=== PATIENT | male | born 1960 | race Caucasian/White ===

== ENCOUNTER 2018-08-27 07:13 | Inpatient (IN) ==
[2018-08-27] MEDS ORDERED: ZOFRAN IV ONE (07:27)
[2018-08-27] MEDS ORDERED: M.V.I.-12 10 ML, FOLIC ACID 1 MG, MAGNESIUM SULFATE 1 GM, THIAMINE 100 MG in NS 1,000 ML IV ONE (07:27)
[2018-08-27] MEDS ORDERED: TORADOL IV ONE (07:27)
[2018-08-27] MEDS ORDERED: DILAUDID IV ONE (07:27)
[2018-08-27] MEDS ORDERED: POTASSIUM CHLORIDE 20 MEQ/SWI 20 MEQ/100 ML IVPB IV ONE (07:28)
[2018-08-27 08:05] LABS: INR 0.88; PROTIME 12.7 Seconds (11.0-16.0); PTT 25.2 Seconds (22.3-41.8)
--- NOTE | 2018-08-27 08:18 | Diag Imaging Result Doc PS360 ---
EXAM: XRAY PELVIS W/HIP 2-3VW LT 08/27/2018 HISTORY: fall, injury TECHNIQUE: Two views COMMENT: There is an intertrochanteric fracture of the left femur. There is a healing fracture of the proximal right femur with intramedullary rosalind and hip nail. There is generalized osteopenia. IMPRESSION: Left intertrochanteric fracture. Electronically signed by Cj Kuo 08/27/2018 8:16 AM
[2018-08-27] MEDS ORDERED: ATIVAN IV ONE ×2 (08:20→08:53)
[2018-08-27] MEDS ORDERED: MAGNESIUM SULFATE 2 GM/S.W.I. 2 GM/50 ML IVPB IV ONE (08:21)
--- NOTE | 2018-08-27 08:26 | PROVIDER DOCUMENTATION ---
HPI-Musculoskeletal Pain/Inj - GENERAL Chief Complaint: Fall Stated Complaint: fall/hip pain Time Seen by Provider: 08/27/18 07:20 Source: patient, EMS - HX OF PRESENT ILLNESS-MUSKULOSKELTAL Nature of Presenting Problem: Patient had just been discharged this morning from the ER for a chest pain work- up, and while walking home, tripped and fell off a curb onto his left hip. Patient has had a recent right hip fracture ORIF, and states he knows his hip is broken. Patient denies being an alcohol or going through withdrawals, and states "I only drink 2-3 beers a day." Last meal 2200 last night, last alcohol intake about the same time. Denies any other injuries or Loc/neck pain. Quality of Pain: reports: sharp, stabbing Severity in ED: severe Onset/Duration: just prior to arrival Timing: still present Modifying Factors: improves with: immobilization. 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) Locality of Occurance: Other (street) Similar Symptoms Previously?: Yes (with right hip) Recently seen or treated by another doctor?: Yes (this ER for chest pain) - FALL INJURY Location of Pain/Injury: reports: lower extremity (left hip) Pain Radiation: reports: no radiation Reason for Fall: reports: lost balance Symptoms prior to fall:: reports: chest pain (last night, resolved around 0200) Loss of Consciousness: no loss of consciousness Injury Associated Symptoms: reports: snap/crack/pop sensation, unable to bear weight, trouble walking - HIP/PELVIS PAIN/INJURY Hip Pain Location: reports: hip (L) Pain Radiation: reports: no radiation Context / Method of Injury: reports: fall Associated Symptoms: denies: loss of bladder control, loss of bowel control, lower back pain, muscle spasms, numbness in legs/feet, sensory/motor loss, tingling in legs/feet, weakness in legs/feet Review of Systems - Adult - REVIEW OF SYSTEMS - ADULT Constitutional: reports: see HPI, chills. denies: fever, fatique, night sweats , weight gain, weight loss Eyes: reports: no symptoms reported Ears, Nose, Mouth & Throat: reports: no symptoms reported Cardiovascular: reports: see HPI, chest pain (last night, sharp, constant, lasted a few minutes) Respiratory: reports: chronic cough. denies: cough, dyspnea on exertion, excessive sputum production, hemoptysis, pleurisy, shortness of breath, wheezing Gastrointestinal: reports: no symptoms reported Genitourinary: reports: no symptoms reported Musculoskeletal: reports: no symptoms reported Integumentary: reports: no symptoms reported Neurological: reports: no symptoms reported Psychiatric: reports: no symptoms reported Endocrine: reports: no symptoms reported Hematologic/Lymphatic: reports: no symptoms reported Allergic/Immunologic: reports: no symptoms reported All Other Systems: Reviewed and Negative Past History - Adult - PAST MEDICAL HISTORY-ADULT Review of Records: reports: Old Records Reviewed, Nursing Assessment Review, Medications Reviewed, Social history reviewed & non-contributory. Major Childhood Illnesses: reports: denies history Cardiovascular: reports: HTN Respiratory: reports: denies history Gastrointestinal: reports: pancreatitis Obstetrical/Gynecological: reports: denies history Genitourinary: reports: denies history Musculoskeletal: reports: denies history Neurological: reports: denies history Endocrine/Immune: reports: denies history Other Conditions: reports: denies history - PRIOR SURGERIES/PROCEDURES Surgical/Procedure History: reports: orthopedic (extremity), joint replacement - IMMUNIZATION STATUS Childhood Immunizations: See Nurse Assessment Flu Vaccine: See Nurse Assessment - FAMILY HISTORY Family History: reviewed, not pertinent Physical Exam-Injury Related - Physical Exam-Injury Related Initial Vital Signs Reviewed: Yes (Tacycardic, hypertensive, o/w normal) General Appearance: alert, no apparent distress, thin, anxious, other (tremulous ) Eyes: PERRL/EOMI, pink conjunctivae Head, Ears, Nose, Mouth & Throat: normocephalic/atraumatic, moist mucous membranes, normal ENT inspection, pharynx normal, dental decay Neck: non-tender, full range of motion, supple, normal inspection. negative: pain with axial compression Respiratory: chest non-tender, no pleuratic chest pain, no respiratory distress , no accessory muscle use, rhonchi, wheezing. 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, no motor/sensory deficits, abnormal cerebellar tests (unsteady gate), abnormal gait, other (tremulous) Psych/Mental Status: normal thought content, normal thought process, oriented x 3, anxious, disheveled - Gl[place]ow Coma Score Best Eye Response ([place]): (4) open spontaneously Best Verbal Response ([place]): (5) oriented Best Motor Response ([place]): (6) obeys commands [place] Total: 15 Progress - PLAN OF CARE/RESULTS Progress/Plan/Lab Results: Vital Signs - 8 hr 08/27/18 07:42 Temperature 97.3 F L Pulse Rate 98 H Respiratory Rate 20 Blood Pressure 166/120 O2 Sat by Pulse Oximetry 95 Laboratory Results - last 24 hr 08/27/18 08/27/18 08/27/18 07:35 07:35 07:35 PT 12.7 INR 0.88 PTT (Actin FS) 25.2 Magnesium 1.4 L Troponin T Plasma/Serum Ethyl Alc 08/27/18 07:35 PT INR PTT (Actin FS) Magnesium Troponin T < 0.010 Plasma/Serum Ethyl Alc Orders Category Date Time Status Saline Loc NOW Care 08/27/18 07:26 Active NPO Diet 08/27/18 07:[address] HEAD/C-SPINE W/O CONTRAST [CT] Stat Exams 08/27/18 08:22 Ordered XRAY PELVIS W/HIP 2-3VW LT [RAD] Stat Exams 08/27/18 07:27 Completed ALCOHOL BLOOD Stat Lab 08/27/18 07:35 Completed BLOOD CULTURE [BLDCUL] Stat Lab 08/27/18 08:20 Ordered LACTATE, PLASMA [CHEM] Stat Lab 08/27/18 08:20 Uncollected MAGNESIUM [CHEM] Stat Lab 08/27/18 07:35 Completed PROTIME WITH INR [COAG] Stat Lab 08/27/18 07:35 Completed PTT [COAG] Stat Lab 08/27/18 07:35 Completed TROPONIN T Stat Lab 08/27/18 07:35 Completed URINALYSIS W/POSS RFLX CULT [URINALYSIS] Stat Lab 08/27/18 07:27 Uncollected URINE DRUG SCREEN Stat Lab 08/27/18 07:27 Uncollected Hydromorphone [Dilaudid] Med 08/27/18 07:27 Discontinued 1 mg IV NOW ONE Ketorolac [Toradol] Med 08/27/18 07:27 Discontinued 30 mg IV NOW ONE Lorazepam [Ativan] Med 08/27/18 08:20 Discontinued 1 mg IV NOW ONE Magnesium Sulfate 2 gm/S.w.i. [Magnesium Sulfate 2 gm/S Med 08/27/18 08:21 Active .w.i] 2 gm in 50 ml IV NOW Mvi [M.v.i.-12] 10 ml Med 08/27/18 07:27 Discontinued Folic Acid 1 mg Magnesium Sulfate 1 gm Thiamine 100 mg 0.9% Sodium Chloride Inj [Ns] 1,000 ml IV NOW Ondansetron [Zofran] Med 08/27/18 07:27 Discontinued 4 mg IV NOW ONE Potassium Chloride 20 Meq/Swi Med 08/27/18 07:28 Active 20 meq in 100 ml IV ONCE EKG [EKG] Stat Ther 08/27/18 07:26 Ordered Last night chart reviewed, labs essentially normal except mild anemia and hypokalemia. - REASSESSMENT Reassessment #1 Time Reassessed: 08:52 Status: improving (after meds given) - CONSULTS/PCP/HOSPITALIST Notification #1 *Consult/PCP/Hospitalist*: jordan paged at 0817 Time Discussed: 08:44 Reason/Comments: Keep NPO, he will likely do ORIF this afternoon #2 Consult: MARY Maxwell Time Discussed: 08:31 Reason/Comments: admit to Day Consult Disposition: Will see in ED Departure - Departure Date of Disposition Decision: 08/27/18 Time of Disposition Decision: 08:31 DIAGNOSIS: Hypomagnesemia syndrome, Hypokalemia due to inadequate potassium intake, Hypertensive urgency, malignant Closed intertrochanteric fracture of left hip Qualifiers: Encounter type: initial encounter Fracture alignment: displaced Qualified Code( s): S72.142A - Displaced intertrochanteric fracture of left femur, initial encounter for closed fracture Fall (on)(from) sidewalk curb, initial encounter Qualifiers: Encounter type: initial encounter Qualified Code(s): W10.1XXA - Fall (on)(from ) sidewalk curb, initial encounter Alcohol withdrawal Qualifiers: Complication of substance-induced condition: uncomplicated Qualified Code(s): F10.230 - Alcohol dependence with withdrawal, uncomplicated Disposition: ADMITTED INPATIENT 09 Certified Medical Emergency: Emergent Condition: Stable - Critical Care Note This patient required my direct & personal management of CC.: Yes Total Time (mins): 40 Critical Care Statement: This patient required my direct personal management to treat or rule out processes, the absence of which, could potentiallly result in sudden, clinically significant life or limb threatening deterioration. Attestation - Physician/ MARCELL Attestation Patient care was provided by Advanced Practice Provider:: No The physician spent face to face time with patient:: Yes Advanced Practice Provider documentation review:: Supervising physician onsite and consulted in the evaluation and care of this patient. The physician did have a face to face encounter with the patient.
[2018-08-27] MEDS ORDERED: DUONEB (A & A) INH ONE (08:30)
[2018-08-27 08:43] LABS: URINE SOURCE CLEAN CATCH
[2018-08-27] MEDS ORDERED: BENTYL PO PRN (08:45)
[2018-08-27 08:47] LABS: BILIRUBIN URINE NEGATIVE (NEGATIVE); BLOOD URINE NEGATIVE (NEGATIVE); COLOR STRAW; GLUCOSE URINE NEGATIVE (NEGATIVE); KETONE URINE NEGATIVE (NEGATIVE); LEUKOCYTES URINE NEGATIVE (NEGATIVE); NITRITE URINE NEGATIVE (NEGATIVE); PROTEIN URINE NEGATIVE (NEGATIVE); TURBIDITY URINE CLEAR (CLEAR); UROBILINOGEN URINE NORMAL (NORMAL)
[2018-08-27 08:48] LABS: UR EPITHELIAL CELLS <10 /HPF (<10); URINE BACTERIA NEGATIVE /HPF; URINE RBC <10 /HPF (<10); URINE WBC <10 /HPF (<10)
[2018-08-27] MEDS ORDERED: CATAPRES-TTS-2 TD ONE (08:53)
[2018-08-27] MEDS ORDERED: LABETALOL IV ONE (08:54)
[2018-08-27] MEDS ORDERED: TYLENOL PO PRN (09:00)
[2018-08-27] MEDS ORDERED: ZOFRAN IV PRN (09:00)
[2018-08-27 09:01] LABS: UR AMPHETAMINES MT NONE DETECTED (NONE DETECT); UR BARBITUATES MT NONE DETECTED (NONE DETECT); UR BENZODIAZ MT PRESUMPTIVE POS (NONE DETECT); UR CANNABIS MEDTOX NONE DETECTED (NONE DETECT); UR COCAINE MT NONE DETECTED (NONE DETECT); UR METHADONE MEDTOX NONE DETECTED (NONE DETECT); UR OPIATES MT NONE DETECTED (NONE DETECT); UR OXYCODONE MEDTOX NONE DETECTED (NONE DETECT); UR PCP MEDTOX NONE DETECTED (NONE DETECT)
--- NOTE | 2018-08-27 09:09 | ED EKG INTERP ---
EKG Interpretation - EKG Time of EKG reading by physician:: 09:08 EKG Read and Signed by:: Burton Vera EKG Interpretation (*Must complete 3 of following elements*): Abnormal Rate: 98 Rhythm: NSR [place]: normal QRS: other (high voltage) MD Interval: normal ST Wave: non-specific ST changes Comments: prolonged QTc and artifcat present Attestation - Physician/ MARCELL Attestation Patient care was provided by Advanced Practice Provider:: No The physician spent face to face time with patient:: Yes Advanced Practice Provider documentation review:: Supervising physician onsite and consulted in the evaluation and care of this patient. The physician did have a face to face encounter with the patient.
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
--- NOTE | 2018-08-27 09:57 | Diag Imaging Result Doc PS360 ---
CT HEAD/C-SPINE W/O CONTRAST - 08/27/2018 INDICATION: head injury/pain COMPARISON: 01/05/2018 FINDINGS: Head CT: Stable moderate periventricular white matter chronic microvascular disease. The ventricles and sulci are normal in size and contour. No intracranial mass or hemorrhage. The skull is intact. The sinuses, mastoids, and middle ears are clear.. Cervical spine: There is stable grade 1 anterolisthesis of C4 on C5, by about 3.5 mm. Stable mild disc degeneration at C3-4 and C4-5. Stable mild to moderate multilevel facet degeneration. There is no fracture. No change from prior. IMPRESSION: 1. No acute process in the brain. 2. Stable chronic findings in the cervical spine. No acute injury. This exam was performed using automated exposure control, adjustment of mA or kV according to patient size, and/or use of iterative reconstruction technique Electronically signed by Federico Durant 08/27/2018 9:55 AM
--- NOTE | 2018-08-27 10:29 | Diag Imaging Result Doc PS360 ---
FEMUR MIN 2 VIEWS LEFT - 08/27/2018 INDICATION: hip fracture TECHNIQUE: Two views COMPARISON: Hip x-rays from earlier today FINDINGS: There is no distal fractures of the femur. The knee joint appears intact. IMPRESSION: No distal fractures. Electronically signed by Federico Durant 08/27/2018 10:26 AM
[2018-08-27] MEDS: M.V.I.-12 10 ML, FOLIC ACID 1 MG, MAGNESIUM SULFATE 1 GM, THIAMINE 100 MG in NS 1,000 ML IV SCH (10:32)
--- NOTE | 2018-08-27 10:34 | EKG Report ---
Test Performed on : 08/27/2018 09:05:40 AM Test Reason : pre-op Blood Pressure : / mmHG Vent. Rate : 098 BPM Atrial Rate : 098 BPM P-R Int : 176 ms QRS Dur : 090 ms QT Int : 394 ms P-R-T Axes : 059 034 058 degrees QTc Int : 503 ms Normal sinus rhythm. Prolonged QT Abnormal ECG When compared with ECG of 27-AUG-2018 00:12, (Unconfirmed) No significant change was found Unconfirmed Result
[2018-08-27] MEDS: THERA M PLUS PO SCH (11:14)
[2018-08-27] MEDS: KLOR-CON PO SCH (11:15)
[2018-08-27] MEDS: ATIVAN IV PRN (11:19)
[2018-08-27] MEDS: LIBRIUM PO SCH ×2 (11:20→21:08)
[2018-08-27] MEDS: NORVASC PO SCH ×2 (11:22→21:09)
[2018-08-27] MEDS: COZAAR PO SCH (11:22)
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
[2018-08-27] MEDS: NS 1,000 ML IV SCH (11:25)
[2018-08-27] MEDS: FOLIC ACID PO SCH (11:28)
[2018-08-27] MEDS: NORCO-7.5 PO PRN (14:16)
[2018-08-27] MEDS: CATAPRES PO SCH ×2 (14:50→21:08)
[2018-08-27] MEDS: DUONEB (A & A) INH PRN (16:42)
[2018-08-27] MEDS ORDERED: KEFZOL 1 GM/D5W 1 GM/50 ML IVPB ONE (17:26)
[2018-08-27] MEDS ORDERED: ROBINUL ONE (17:29)
[2018-08-27] MEDS ORDERED: XYLOCAINE-MPF 2% ONE (17:29)
[2018-08-27] MEDS ORDERED: FENTANYL ONE (17:30)
[2018-08-27] MEDS ORDERED: DIPRIVAN 1% ONE ×2 (17:59)
[2018-08-27] MEDS ORDERED: ZOFRAN ONE (18:28)
[2018-08-27] MEDS ORDERED: DILAUDID ONE (19:27)
[2018-08-27] MEDS: PROZAC PO SCH (21:09)
[2018-08-27] MEDS: MORPHINE IV PRN (21:10)
[2018-08-27] MEDS: PERIDEX MT SCH (21:12)
[2018-08-28] MEDS: KEFZOL 1 GM/D5W 1 GM/50 ML IVPB IV SCH ×3 (02:31→17:17)
[2018-08-28] MEDS: OXY IR PO PRN ×4 (02:31→21:03)
[2018-08-28] MEDS: LIBRIUM PO SCH ×2 (02:32→09:59)
[2018-08-28] MEDS: NS 1,000 ML IV SCH ×2 (05:08→17:19)
--- NOTE | 2018-08-28 06:27 | OPERATIVE NOTE ---
PROCEDURE DATE: 08/27/2018 PREOPERATIVE DIAGNOSIS: Left intertrochanteric hip fracture. POSTOPERATIVE DIAGNOSIS: Left intertrochanteric hip fracture. PROCEDURE: Left trochanteric femoral nailing. SURGEON: Dr. Kwame Coles. FELT STRIP FINISHER: MARY Keys who was an integral part of the case helping with all aspects of the case helping to increase our OR efficiency greatly. ANESTHESIA: General with LMA. ESTIMATED BLOOD LOSS: 100 mL. IMPLANTS: Synthes 11 x 400 trochanteric femoral nail with helical blade and distal interlocking screw. DISPOSITION: To PACU hemodynamically stable. INDICATIONS FOR PROCEDURE: Mr. Link is a 57-year-old male, who presented to the emergency department early this morning with a hip fracture. He was admitted per the hospitalist service. I discussed with him about surgical intervention. He expressed understanding and wished to proceed. DESCRIPTION OF PROCEDURE: Mr. Link was identified in the preop holding area. The left hip was marked as the correct surgical site. He was then wheeled to the operating room, kept supine on his own bed. He was induced under general anesthesia. LMA was placed. He was then moved to the traction table. His feet were placed in traction boots. Slight traction was pulled on that left lower extremity. Left lower extremity was then prepped with chlorhexidine, gluconate scrub and then ChloraPrep, and draped in normal sterile fashion. Surgical pause was performed. We identified the correct patient, correct side, and the correct procedure. Preop antibiotics were given. We started fluoroscopic imaging which showed with a little bit of traction we were able to get a good reduction with AP and lateral views. The neck was flexed just a little bit, but still had really good bony contact. I then made an incision proximal to it's trochanter. Dissection was carried down. I got my guidewire in good position. I was then able to get opening reamer in. I got my ball-tip guidewire down, and was reamed to a size 12. Then, I placed an 11 x 400 nail in. I got my guidewire positioned and center-center in the head for the helical blade. I then advanced the helical blade, and we got it center-center in the head under AP and lateral views. I locked it down in position. Then, we removed the outrigger guide proximally. Final images were taken which showed that we had a good reduction, and good position of all our hardware. Good bony apposition as well. We came distally then through one interlocking screw in the dynamic hole. Final images were taken down there which showed the screw was in good position. We then closed the deep layer with 0 Vicryl, 2-0 Vicryl for the subcutaneous, and zakiya on the skin. Adaptic, 4x4s, and island dressings were applied. He was then taken out of traction, moved to his own bed and taken to the PACU in stable condition. Postoperatively, he will be weight bearing as tolerated left lower extremity. I will see him in the morning. cc: Kwame Coles MD
[2018-08-28] MEDS: LOVENOX SUBQ SCH ×2 (06:39→07:27)
[2018-08-28 06:40] LABS: INR 0.99; PROTIME 13.8 Seconds (11.0-16.0); PTT 28.6 Seconds (22.3-41.8)
[2018-08-28 06:56] LABS: BASO# 0.03 X1000 (0.0-0.2); BASO% 0.4 % (0.0-0.8); EOS# 0.01 X1000 (0.0-0.7); EOS% 0.1 % (0.0-10.0); HEMATOCRIT 26.7 % (42.0-52.0); HEMOGLOBIN 8.4 g/dL (14.0-18.0); IMM GRAN# 0.03 X1000 (0.0-0.04); IMM GRAN% 0.4 % (0.0-0.5); LYMPH% 16.1 % (20.5-51.1); MCH 31.2 PG (27-31); MCHC 31.5 g/dL (33-37); MCV 99.3 FL (81-99); MONO# 1.39 X1000 (0.11-0.59); MONO% 20.4 % (1.7-9.3); MPV 10.3 FL (7.4-10.4); NEUT# 4.26 X1000 (1.4-6.5); NEUT% 62.6 % (42.2-75.2); PLT 267 X1000 (130-400); RBC 2.69 XMIL (4.7-6.1); RDW 17.7 % (11.5-14.5); WBC 6.82 X1000 (4.8-10.8)
[2018-08-28 07:45] LABS: AGAP 10; ALB/GLOB RATIO 1.1; ALBUMIN 2.7 g/dL (3.5-5.0); ALKALINE PHOSPHATASE 106 U/L (32-122); AMYLASE 150 U/L (20-200); BUN 7 mg/dL (8-22); CALCIUM 7.6 mg/dL (8.8-10.2); CHLORIDE 102 mmol/L (98-107); CK TOTAL 172 U/L (24-204); COSMO 282; CREATININE 0.9 mg/dL (0.7-1.2); ESTIMATED GFR > 60; GLUCOSE 111 mg/dL (70-104); GOT 19 U/L (10-34); GPT 14 U/L (10-44); LIPASE 18 U/L (13-60); MAGNESIUM 1.6 mg/dL (1.5-2.7); POTASSIUM 2.6 mmol/L (3.5-5.1); SODIUM 142 mmol/L (136-145); TCO2 30 mmol/L (25-35); TOTAL BILIRUBIN 0.43 mg/dL (0.20-1.00); TOTAL PROTEIN 5.1 g/dL (6.3-8.3)
[2018-08-28 08:18] LABS: FREE T4 1.17 ng/dL (0.93-1.70); TSH 0.65 uIUmL (0.27-4.20)
--- NOTE | 2018-08-28 08:44 | PROGRESS NOTE ---
DATE: 08/28/2018 SUBJECTIVE: Mr. Huynh is awake and alert. His left hip is hurting. OBJECTIVE: Vital Signs: Temperature 98.2 degrees, pulse 94, respirations 16, blood pressure 116/80. Eyes: Pupils are equal and round. Lungs: Clear in all lung gates. Cardiovascular exam: Regular rhythm and rate without murmur or S3. Abdomen: Soft. Skin: Warm and dry. : Urine output is 3100 mL. ASSESSMENT AND PLAN: 1. Left intertrochanteric hip fracture status post left trochanteric femoral nailing per Dr. Kwame Coles. 2. Underlying history of chronic pancreatitis. 3. History of anxiety and panic attacks. 4. History of alcoholism, suspect he will have some withdrawal symptoms. Doing pretty well at this point. LAB: In looking at his lab this morning, white count 6820, hematocrit 26, hemoglobin 8.4, platelet count 267,000. Chemistry: Sodium 142, potassium 2.6, chloride 102. BUN 7, creatinine 0.9. Troponin was less than 0.01. Liver functions normal. AST 19, ALT 14, albumin 2.7. Thyroid looked good. Euthyroid. T4 is 1.17, TSH is 0.65. We will supplement his potassium. REVIEW OF HIS ORDERS: 1. Continue oxycodone IR for pain. He is on Lovenox 40 mg subcutaneously once a day for prophylactic anticoagulant. 2. Lastly the anxiety and depression. Have him on his Prozac. cc: Marcell Day MD
[2018-08-28] MEDS ORDERED: POTASSIUM CHLORIDE 40 MEQ/SWI 40 MEQ/100 ML IVPB IV ONE (09:00)
[2018-08-28] MEDS: PERIDEX MT SCH ×2 (09:55→21:03)
[2018-08-28] MEDS: KLOR-CON PO SCH (09:55)
[2018-08-28] MEDS: M.V.I.-12 10 ML, FOLIC ACID 1 MG, MAGNESIUM SULFATE 1 GM, THIAMINE 100 MG in NS 1,000 ML IV SCH (09:55)
[2018-08-28] MEDS: NORCO-7.5 PO PRN ×2 (09:58→17:17)
[2018-08-28] MEDS: PROZAC PO SCH (10:00)
[2018-08-28] MEDS: THERA M PLUS PO SCH (10:00)
[2018-08-28] MEDS: FOLIC ACID PO SCH (10:01)
[2018-08-28] MEDS: COZAAR PO SCH (10:02)
[2018-08-28] MEDS: NORVASC PO SCH ×2 (10:02→21:03)
[2018-08-28] MEDS: CATAPRES PO SCH ×2 (10:03→21:09)
--- NOTE | 2018-08-28 13:53 | PROGRESS NOTE ---
DATE: 08/28/2018 SUBJECTIVE: Mr. Link is lying in bed this morning. Overall, he is still hurting a little bit on the hip. Left lower extremity exam, his dressings are clean, dry, and intact. He is able to move the toes very well. He has 2+ DP pulse. Good sensation to light touch to the toes. ASSESSMENT: Status post left trochanteric femoral nailing. PLAN: Mr. Link is weight bear as tolerated left lower extremity. He will start working with therapy today. Manager Regulatory to be involved for discharge planning. cc: Kwame Coles MD
[2018-08-28] MEDS: ATIVAN IV PRN ×2 (17:22→21:03)
[2018-08-29] MEDS: LIBRIUM PO SCH ×3 (00:56→16:32)
[2018-08-29] MEDS: ATIVAN IV PRN ×4 (04:10→20:00)
[2018-08-29] MEDS: OXY IR PO PRN ×2 (04:10→10:15)
[2018-08-29] MEDS: NS 1,000 ML IV SCH ×2 (05:16→20:14)
[2018-08-29 05:54] LABS: HEMATOCRIT 24.4 % (42.0-52.0); HEMOGLOBIN 7.5 g/dL (14.0-18.0)
[2018-08-29] MEDS: LOVENOX SUBQ SCH (06:57)
[2018-08-29] MEDS: PERIDEX MT SCH ×2 (09:00→20:00)
[2018-08-29] MEDS: NORVASC PO SCH ×2 (09:11→20:00)
[2018-08-29] MEDS: CATAPRES PO SCH ×2 (09:11→20:00)
[2018-08-29] MEDS: PROZAC PO SCH (09:11)
[2018-08-29] MEDS: KLOR-CON PO SCH (09:11)
[2018-08-29] MEDS: THERA M PLUS PO SCH (09:11)
[2018-08-29] MEDS: FOLIC ACID PO SCH (09:11)
[2018-08-29] MEDS: COZAAR PO SCH (09:11)
[2018-08-29] MEDS: NORCO-7.5 PO PRN ×2 (09:14→16:31)
[2018-08-29 10:20] LABS: AGAP 8; BUN 6 mg/dL (8-22); CALCIUM 7.7 mg/dL (8.8-10.2); CHLORIDE 103 mmol/L (98-107); COSMO 275; CREATININE 0.8 mg/dL (0.7-1.2); ESTIMATED GFR > 60; GLUCOSE 102 mg/dL (70-104); POTASSIUM 2.3 mmol/L (3.5-5.1); SODIUM 139 mmol/L (136-145); TCO2 28 mmol/L (25-35)
--- NOTE | 2018-08-29 10:36 | PROGRESS NOTE ---
DATE: 08/29/2018 SUBJECTIVE: Mr. Link states his hip is still hurting pretty good. He is awake and alert. He has been eating well. He says his bowels have not moved in a couple of days, 2 or 3 days. OBJECTIVE: Temperature is 98.2, pulse 107, respirations 16, blood pressure 142/90. Lungs are clear in all lung gates. Cardiovascular: Regular rate and rhythm without murmur or S3. Abdomen is soft. Skin is warm and dry. Urine output 1300 mL. DIAGNOSTIC DATA: Hematocrit is 24, hemoglobin 7.5. Sodium 142, potassium 2.6, chloride 102, BUN is 7, creatinine 0.9. ASSESSMENT AND PLAN: 1. Status post left trochanteric femoral nailing. He will weight bear as tolerated left lower extremity and continue physical therapy. 2. Acute blood loss anemia with hematocrit 24, hemoglobin 7.5. We will follow. 3. History of alcoholism. He is doing pretty well. Minimal symptoms of withdrawal. 4. History of anxiety and panic attacks. 5. We will supplement his potassium. 6. As far as discharge planning, look for possibilities of rehab. cc: Marcell Day MD
[2018-08-29] MEDS: MORPHINE IV PRN (11:26)
[2018-08-29] MEDS: POTASSIUM CHLORIDE 20 MEQ/SWI 20 MEQ/100 ML IVPB IV SCH ×2 (12:15→15:44)
[2018-08-29] MEDS: M.V.I.-12 10 ML, FOLIC ACID 1 MG, MAGNESIUM SULFATE 1 GM, THIAMINE 100 MG in NS 1,000 ML IV SCH (12:16)
--- NOTE | 2018-08-29 14:14 | PROGRESS NOTE ---
DATE: 08/29/2018 SUBJECTIVE: Mr. Dill is seen status post left hip TFN fixation. OBJECTIVE: Vital Signs: At the present time he is afebrile with stable vital signs. The incisions are all clean and dry. He appears to be motor and sensory intact with no signs of complication such as infection or DVT. PLAN: He can be mobilized partial weightbearing on the left hip. At any point now, he can be transferred out to rehab center or home health with a walker, partial weightbearing on the left hip. We will need to see him back in roughly 10 days' time for staple removal and followup x- rays. We will be available as needed. cc: Yusef Noonan MD
[2018-08-29] MEDS ORDERED: MILK OF MAGNESIA PO PRN (14:19)
[2018-08-29] MEDS ORDERED: DULCOLAX PO PRN (14:19)
[2018-08-29] MEDS: NICODERM PATCH TD SCH (15:44)
[2018-08-29] MEDS: ROBAXIN PO PRN (20:00)
[2018-08-29] MEDS: ATARAX PO PRN (20:00)
[2018-08-30] MEDS: LIBRIUM PO SCH ×3 (00:35→17:53)
[2018-08-30] MEDS: NORCO-7.5 PO PRN ×4 (00:35→17:53)
[2018-08-30] MEDS: MORPHINE IV PRN (04:00)
[2018-08-30] MEDS: NS 1,000 ML IV SCH (05:04)
[2018-08-30] MEDS: LOVENOX SUBQ SCH (05:04)
[2018-08-30 06:32] LABS: BASO# 0.02 X1000 (0.0-0.2); BASO% 0.3 % (0.0-0.8); EOS# 0.09 X1000 (0.0-0.7); EOS% 1.3 % (0.0-10.0); HEMOGLOBIN 6.8 g/dL (14.0-18.0); LYMPH# 1.45 X1000 (1.2-3.4); LYMPH% 21.3 % (20.5-51.1); MCH 30.9 PG (27-31); MCHC 30.9 g/dL (33-37); MONO# 1.42 X1000 (0.11-0.59); MONO% 20.9 % (1.7-9.3); MPV 9.9 FL (7.4-10.4); NEUT# 3.82 X1000 (1.4-6.5); NEUT% 56.2 % (42.2-75.2); PLT 319 X1000 (130-400); RDW 16.9 % (11.5-14.5)
[2018-08-30 07:03] LABS: AGAP 6; BUN 6 mg/dL (8-22); CALCIUM 7.9 mg/dL (8.8-10.2); CHLORIDE 107 mmol/L (98-107); COSMO 282; CREATININE 0.7 mg/dL (0.7-1.2); ESTIMATED GFR > 60; GLUCOSE 92 mg/dL (70-104); MAGNESIUM 1.5 mg/dL (1.5-2.7); SODIUM 143 mmol/L (136-145); TCO2 30 mmol/L (25-35)
[2018-08-30 08:16] LABS: ANISOCYTOSIS 1+; BANDS 4 % (0-1); BASO 2 % (0-1); HYPOCHROM 1+; LYMPHS 28 % (21-51); MONO 14 % (1-9); SEGS 52 % (42-75)
[2018-08-30] MEDS: OXY IR PO PRN (08:18)
[2018-08-30] MEDS: M.V.I.-12 10 ML, FOLIC ACID 1 MG, MAGNESIUM SULFATE 1 GM, THIAMINE 100 MG in NS 1,000 ML IV SCH (09:10)
[2018-08-30] MEDS: KLOR-CON PO SCH (09:12)
[2018-08-30] MEDS: THERA M PLUS PO SCH (09:12)
[2018-08-30] MEDS: COZAAR PO SCH (09:12)
[2018-08-30] MEDS: NICODERM PATCH TD SCH (09:12)
[2018-08-30] MEDS: PROZAC PO SCH (09:12)
[2018-08-30] MEDS: NORVASC PO SCH ×2 (09:12→20:24)
[2018-08-30] MEDS: CATAPRES PO SCH ×2 (09:13→20:25)
[2018-08-30] MEDS: PERIDEX MT SCH ×2 (09:13→20:24)
[2018-08-30] MEDS: FOLIC ACID PO SCH (09:13)
[2018-08-30] MEDS: ATIVAN IV PRN ×2 (13:08→20:24)
--- NOTE | 2018-08-30 13:46 | PROGRESS NOTE ---
DATE: 08/30/2018 SUBJECTIVE: Mr. Link is doing a little better but he recognizes he will need to go to rehab, so we will see if we can set that up for him. OBJECTIVE: Vital signs: Temperature 97.5 degrees, pulse 72, respirations 14, blood pressure 118/81. HEENT: Pupils were equal. Neck: No distended neck veins. Lungs: Clear anterior and posterior. No sign of trouble with air flow. Cardiovascular: Regular rhythm and rate without murmur or S3. PMI nondisplaced. Abdomen: Soft. Extremities: No pedal edema. Pedal pulses are 2+ and symmetrical. Feet are warm with good capillary refill symmetrically. His urine output was 1200 mL. He is eating fairly well. He does not like the food but he is eating well. ASSESSMENT: 1. Status post transfemoral nail fixation. Seems to be on target. Doing well. 2. Acute blood loss anemia. His hematocrit is 22 and hemoglobin 6.8, so I think we probably need to give him a unit of blood. 3. Pain control appears to be adequate. 4. History of alcoholism. Aware. 5. History of anxiety and panic attacks. PLAN: So, I think I am going to give him 1 unit of packed red blood cells. Make sure he is on some iron. Note, will continue to watch his potassium and supplement as needed. Looking over his orders, he is getting OxyIR 5 mg q.3 hours p.r.n., Tylenol 650 mg q.6 hours. He is getting albuterol ipratropium inhalations q.2 hours p.r.n., Norvasc 5 mg twice a day, multivitamin once a day. He is on Lovenox 40 mg subcutaneous q.24 hours, Prozac 20 mg a day. He is on Cozaar 100 mg daily, Ativan he gets p.r.n., Robaxin 750 mg q.6 hours, nicotine patch 21 mg a day, normal saline at 85 mL an hour, and he gets 40 mEq of potassium daily. So, I will go ahead and give him 1 unit of packed red blood cells. cc: Marcell Day MD
[2018-08-30] MEDS ORDERED: NS 500 ML ONE (14:27)
[2018-08-30] MEDS: ATARAX PO PRN (20:24)
[2018-08-30] MEDS: ROBAXIN PO PRN (20:24)
[2018-08-31] MEDS: NORCO-7.5 PO PRN ×2 (00:40→05:00)
[2018-08-31] MEDS: ATARAX PO PRN ×2 (00:50→22:58)
[2018-08-31] MEDS: ATIVAN IV PRN (02:17)
[2018-08-31] MEDS: LOVENOX SUBQ SCH (05:00)
[2018-08-31] MEDS: LIBRIUM PO SCH (05:06)
[2018-08-31 06:51] LABS: BASO# 0.06 X1000 (0.0-0.2); BASO% 0.7 % (0.0-0.8); EOS# 0.08 X1000 (0.0-0.7); EOS% 0.9 % (0.0-10.0); HEMATOCRIT 27.5 % (42.0-52.0); IMM GRAN# 0.04 X1000 (0.0-0.04); IMM GRAN% 0.4 % (0.0-0.5); LYMPH# 1.81 X1000 (1.2-3.4); LYMPH% 19.9 % (20.5-51.1); MCH 31.8 PG (27-31); MCHC 32.7 g/dL (33-37); MCV 97.2 FL (81-99); MONO# 1.21 X1000 (0.11-0.59); MONO% 13.3 % (1.7-9.3); MPV 10.4 FL (7.4-10.4); NEUT# 5.89 X1000 (1.4-6.5); NEUT% 64.8 % (42.2-75.2); PLT 375 X1000 (130-400); RBC 2.83 XMIL (4.7-6.1); RDW 17.3 % (11.5-14.5); WBC 9.09 X1000 (4.8-10.8)
[2018-08-31 07:02] LABS: AGAP 11; BUN 6 mg/dL (8-22); CALCIUM 8.5 mg/dL (8.8-10.2); CHLORIDE 103 mmol/L (98-107); COSMO 277; CREATININE 0.8 mg/dL (0.7-1.2); ESTIMATED GFR > 60; GLUCOSE 107 mg/dL (70-104); MAGNESIUM 1.4 mg/dL (1.5-2.7); SODIUM 140 mmol/L (136-145); TCO2 26 mmol/L (25-35)
[2018-08-31] MEDS: CATAPRES PO SCH ×2 (08:57→22:57)
[2018-08-31] MEDS: NORVASC PO SCH ×2 (08:57→22:56)
[2018-08-31] MEDS: FOLIC ACID PO SCH (08:57)
[2018-08-31] MEDS: THERA M PLUS PO SCH (08:57)
[2018-08-31] MEDS: NICODERM PATCH TD SCH (08:57)
[2018-08-31] MEDS: KLOR-CON PO SCH (08:57)
[2018-08-31] MEDS: PROZAC PO SCH (08:57)
[2018-08-31] MEDS: PERIDEX MT SCH (08:57)
[2018-08-31] MEDS: OXY IR PO PRN ×3 (08:57→22:57)
[2018-08-31] MEDS: M.V.I.-12 10 ML, FOLIC ACID 1 MG, MAGNESIUM SULFATE 1 GM, THIAMINE 100 MG in NS 1,000 ML IV SCH (10:37)
[2018-08-31] MEDS: COZAAR PO SCH (10:47)
--- NOTE | 2018-08-31 17:27 | PROGRESS NOTE ---
DATE: 08/31/2018 SUBJECTIVE: Mr. Link still complains of hip pain and he feels like he will need to go to rehab. He is making progress with physical therapy. He is eating a little bit. No signs of alcohol withdrawal. No tremor and breathing comfortably. Bowels are moving. OBJECTIVE: Vital Signs: Temperature 97.3 degrees, pulse 70, respirations 20, blood pressure 140/83. HEENT: Pupils are equal. Neck: No distended neck veins. Lungs: Clear in all lung gates. Cardiovascular: Regular rhythm and rate without murmur or S3. Urine output is 1900 mL. ASSESSMENT AND PLAN: 1. Status post transfemoral nail fixation doing well. He would like to go to rehab. He really has nobody to help him at home. 2. Acute blood loss anemia. Hemoglobin and hematocrit continue to follow. I did give him a transfusion yesterday as hemoglobin got down to 6.8 and gave him 1 unit. Hemoglobin 9 and hematocrit 27 this morning. 3. Pain control is adequate. 4. History of alcoholism. 5. History of anxiety and panic attacks. Social Service is looking for rehab. Continue physical therapy. I see any change in his medication. He is on a nicotine patch and has been counseled on the importance of quitting smoking. cc: Marcell Day MD
[2018-08-31] MEDS: NS 1,000 ML IV SCH (18:53)
[2018-09-01] MEDS: LIBRIUM PO SCH ×3 (01:09→20:14)
[2018-09-01] MEDS: MORPHINE IV PRN ×3 (01:10→20:13)
[2018-09-01] MEDS: ATIVAN IV PRN ×5 (01:10→20:13)
[2018-09-01] MEDS: PERIDEX MT SCH ×2 (01:40→09:43)
[2018-09-01] MEDS: LOVENOX SUBQ SCH (06:18)
[2018-09-01 07:55] LABS: AGAP 11; BUN 5 mg/dL (8-22); CALCIUM 8.5 mg/dL (8.8-10.2); CHLORIDE 101 mmol/L (98-107); COSMO 272; CREATININE 0.6 mg/dL (0.7-1.2); ESTIMATED GFR > 60; GLUCOSE 85 mg/dL (70-104); MAGNESIUM 1.3 mg/dL (1.5-2.7); PHOSPHORUS 3.4 mg/dL (2.7-4.5); POTASSIUM 3.6 mmol/L (3.5-5.1); SODIUM 138 mmol/L (136-145); TCO2 26 mmol/L (25-35)
--- NOTE | 2018-09-01 08:03 | PROGRESS NOTE ---
DATE: 09/01/2018 SUBJECTIVE: Mr. Link is lying in bed this morning. He is complaining of pain in the left hip. OBJECTIVE: On left lower extremity exam, his dressings were removed. His incisions are clean, dry, and intact. There is no erythema around those. It looks like he has a little bit of a rash almost around that hip wound proximally but the incision actually itself looks really good. He is neurovascularly intact to the left lower extremity. ASSESSMENT: Status post left trochanteric femoral nailing. PLAN: I discussed with Mr. Link about getting up and moving. I know he really does not want to but I really need him up walking and putting full weight on his left lower extremity. inpatient services rn to be involved in working on discharge planning. He will work with therapy today again, getting him up to a bedside chair and getting him up walking. He will need to see me in a week or two in clinic to get the zakiya out and get x-rays. cc: Kwame Coles MD
[2018-09-01] MEDS: NS 1,000 ML IV SCH (08:26)
[2018-09-01] MEDS ORDERED: MAGNESIUM SULFATE 2 GM/S.W.I. 2 GM/50 ML IVPB IV ONE (09:00)
[2018-09-01] MEDS: THERA M PLUS PO SCH (09:42)
[2018-09-01] MEDS: FOLIC ACID PO SCH (09:42)
[2018-09-01] MEDS: KLOR-CON PO SCH (09:42)
[2018-09-01] MEDS: PROZAC PO SCH (09:42)
[2018-09-01] MEDS: COZAAR PO SCH (09:42)
[2018-09-01] MEDS: NORVASC PO SCH ×2 (09:42→20:14)
[2018-09-01] MEDS: NICODERM PATCH TD SCH (09:43)
[2018-09-01] MEDS: M.V.I.-12 10 ML, FOLIC ACID 1 MG, MAGNESIUM SULFATE 1 GM, THIAMINE 100 MG in NS 1,000 ML IV SCH (11:19)
[2018-09-01] MEDS: NORCO-7.5 PO PRN ×2 (11:32→16:18)
[2018-09-01] MEDS: CATAPRES PO SCH ×2 (11:33→20:15)
[2018-09-01] MEDS: MIRALAX PO SCH (20:13)
[2018-09-01] MEDS: LACTULOSE PO SCH ×2 (20:13→20:15)
--- NOTE | 2018-09-01 20:16 | PROGRESS NOTE ---
DATE: 09/01/2018 SUBJECTIVE: The patient is resting comfortably in bed. He states that he still has a lot of pain when he tries to get up and participate with physical therapy. OBJECTIVE: Vital Signs: Temperature 97.8 degrees, blood pressure 118/77, heart rate 56, respirations 12, O2 saturations 100% on room air. General: This is a chronically ill-appearing elderly male lying in bed in no acute distress. Heart: S1, S2 normal. Bradycardic. Lungs: Clear to auscultation bilaterally. Abdomen: Positive bowel sounds. Soft, nontender, nondistended. Extremities: No edema, no cyanosis. Neuro: The patient is alert and oriented x3. LABS: Magnesium 1.3, BUN 5, creatinine 0.6, chloride 101, CO2 26, sodium 138, potassium 3.6. ASSESSMENT AND PLAN: 1. Status post left trochanteric femoral nail. Management as per the orthopedic surgeon. 2. Alcohol dependence. Aware. The patient has been counseled about cessation. The patient is currently on Librium and p.r.n. Ativan. 3. Tobacco dependence. Continue on the NicoDerm patch. 4. Constipation. Will start the patient on scheduled laxative therapy. 5. Situational depression. Continue on Prozac. 6. Hypertension. Controlled. 7. Deep vein thrombosis prophylaxis. Continue on Lovenox. 8. Disposition. Will continue with physical therapy. Special Procedure Tech is working on inpatient rehab placement for the patient. cc: Ling Neri MD
--- NOTE | 2018-09-01 21:06 | Diag Imaging Result Doc PS360 ---
EXAM: ABDOMEN FLAT/UPRIGHT 09/01/2018 HISTORY: constipation TECHNIQUE: Flat and upright abdomen COMMENT: There is stool throughout the colon without evidence of dilatation. The small bowel and stomach are not distended. There is no evidence of organomegaly or mass. There are no previous studies. IMPRESSION: Constipation. Electronically signed by Cj Kuo 09/01/2018 9:02 PM
[2018-09-02] MEDS: NORCO-7.5 PO PRN ×3 (00:27→22:50)
[2018-09-02] MEDS: ATIVAN IV PRN ×4 (00:27→22:49)
[2018-09-02] MEDS: PERIDEX MT SCH ×2 (02:07→09:19)
[2018-09-02 06:38] LABS: BASO# 0.04 X1000 (0.0-0.2); BASO% 0.4 % (0.0-0.8); EOS# 0.09 X1000 (0.0-0.7); HEMATOCRIT 27.7 % (42.0-52.0); HEMOGLOBIN 9.1 g/dL (14.0-18.0); IMM GRAN# 0.04 X1000 (0.0-0.04); IMM GRAN% 0.4 % (0.0-0.5); LYMPH# 1.14 X1000 (1.2-3.4); MCH 31.1 PG (27-31); MCHC 32.9 g/dL (33-37); MCV 94.5 FL (81-99); MONO# 0.87 X1000 (0.11-0.59); MONO% 9.2 % (1.7-9.3); MPV 9.9 FL (7.4-10.4); NEUT# 7.29 X1000 (1.4-6.5); PLT 454 X1000 (130-400); RBC 2.93 XMIL (4.7-6.1); RDW 15.9 % (11.5-14.5); WBC 9.47 X1000 (4.8-10.8)
[2018-09-02 07:06] LABS: AGAP 10; BUN 6 mg/dL (8-22); CALCIUM 8.3 mg/dL (8.8-10.2); CHLORIDE 101 mmol/L (98-107); COSMO 279; CREATININE 0.6 mg/dL (0.7-1.2); ESTIMATED GFR > 60; GLUCOSE 97 mg/dL (70-104); MAGNESIUM 1.7 mg/dL (1.5-2.7); POTASSIUM 2.7 mmol/L (3.5-5.1); SODIUM 141 mmol/L (136-145); TCO2 30 mmol/L (25-35)
[2018-09-02] MEDS ORDERED: KLOR-CON PO ONE (07:24)
[2018-09-02] MEDS: COZAAR PO SCH (09:18)
[2018-09-02] MEDS: THERA M PLUS PO SCH (09:18)
[2018-09-02] MEDS: MIRALAX PO SCH (09:18)
[2018-09-02] MEDS: NORVASC PO SCH ×2 (09:18→22:50)
[2018-09-02] MEDS: LOVENOX SUBQ SCH (09:18)
[2018-09-02] MEDS: LACTULOSE PO SCH ×2 (09:19→10:17)
[2018-09-02] MEDS: NICODERM PATCH TD SCH (09:19)
[2018-09-02] MEDS: CATAPRES PO SCH ×2 (09:19→22:50)
[2018-09-02] MEDS: PROZAC PO SCH (09:19)
[2018-09-02] MEDS: FOLIC ACID PO SCH (09:19)
[2018-09-02] MEDS: OXY IR PO PRN ×2 (12:20→19:00)
[2018-09-02] MEDS: ROBAXIN PO PRN (22:56)
--- NOTE | 2018-09-03 00:26 | PROGRESS NOTE ---
DATE: 09/02/2018 SUBJECTIVE: The patient is resting comfortably in bed. He has agreed to take the laxatives, since he has not had a bowel movement in several days. OBJECTIVE: Vital Signs: Temperature 98.2 degrees, blood pressure 145/82, heart rate 70, respirations 18, O2 saturation 99% on 2 L nasal cannula. General: The patient is resting comfortably in bed, in no acute distress. Heart: S1, S2 normal. Regular rate and rhythm. Lungs: Equal air entry bilaterally. No wheezing. No rales. No rhonchi. Abdomen: Positive bowel sounds. Soft, nontender, nondistended. Extremities: No edema. No cyanosis. Neurologic: The patient is alert and oriented x3. LABS: White blood cell count 9.4, hemoglobin 9.1, hematocrit 27, platelets 454,000. Sodium 141, potassium 2.7, chloride 101, CO2 30, BUN 6, creatinine 0.6, glucose 97, mag 1.7. ASSESSMENT AND PLAN: 1. Status post left trochanteric femoral nail. Continue with physical therapy. 2. Constipation. Continue with scheduled laxative therapy. 3. Alcohol dependence. Aware. 4. Tobacco dependence. Continue on the NicoDerm patch. 5. Hypertension. Continue on the current antihypertensive regimen. 6. Hypokalemia. Will replace the patient's potassium. 7. Deep vein thrombosis prophylaxis. Continue on Lovenox. 8. Disposition. Continue with physical therapy. Planting Material Unloader is working on inpatient rehab placement for the patient. cc: Ling Neri MD
[2018-09-03] MEDS: PERIDEX MT SCH ×4 (02:09→21:17)
[2018-09-03] MEDS: LIBRIUM PO SCH (03:28)
[2018-09-03] MEDS: ATIVAN IV PRN (03:28)
[2018-09-03] MEDS: NORCO-7.5 PO PRN ×4 (03:28→23:40)
[2018-09-03 05:59] LABS: BASO# 0.05 X1000 (0.0-0.2); BASO% 0.5 % (0.0-0.8); EOS# 0.16 X1000 (0.0-0.7); EOS% 1.7 % (0.0-10.0); HEMATOCRIT 26.4 % (42.0-52.0); HEMOGLOBIN 8.6 g/dL (14.0-18.0); IMM GRAN# 0.08 X1000 (0.0-0.04); IMM GRAN% 0.8 % (0.0-0.5); LYMPH# 1.55 X1000 (1.2-3.4); LYMPH% 16.4 % (20.5-51.1); MCH 31.2 PG (27-31); MCHC 32.6 g/dL (33-37); MCV 95.7 FL (81-99); MONO# 0.79 X1000 (0.11-0.59); MONO% 8.4 % (1.7-9.3); NEUT# 6.82 X1000 (1.4-6.5); NEUT% 72.2 % (42.2-75.2); PLT 507 X1000 (130-400); RBC 2.76 XMIL (4.7-6.1); RDW 15.9 % (11.5-14.5); WBC 9.45 X1000 (4.8-10.8)
[2018-09-03 06:13] LABS: AGAP 10; BUN 8 mg/dL (8-22); CALCIUM 7.9 mg/dL (8.8-10.2); CHLORIDE 100 mmol/L (98-107); COSMO 281; CREATININE 0.8 mg/dL (0.7-1.2); ESTIMATED GFR > 60; GLUCOSE 118 mg/dL (70-104); POTASSIUM 2.8 mmol/L (3.5-5.1); SODIUM 141 mmol/L (136-145); TCO2 31 mmol/L (25-35)
[2018-09-03] MEDS: LOVENOX SUBQ SCH (06:34)
[2018-09-03 06:51] LABS: MAGNESIUM 1.5 mg/dL (1.5-2.7); PHOSPHORUS 4.6 mg/dL (2.7-4.5)
[2018-09-03] MEDS: NICODERM PATCH TD SCH ×2 (07:57→11:44)
[2018-09-03] MEDS: THERA M PLUS PO SCH ×2 (07:58→11:44)
[2018-09-03] MEDS: CATAPRES PO SCH ×3 (07:58→21:46)
[2018-09-03] MEDS: NORVASC PO SCH ×2 (07:59→21:45)
[2018-09-03] MEDS: FOLIC ACID PO SCH (07:59)
[2018-09-03] MEDS: COZAAR PO SCH (07:59)
[2018-09-03] MEDS: PROZAC PO SCH ×2 (07:59→11:44)
[2018-09-03] MEDS ORDERED: KLOR-CON PO ONE (08:00)
[2018-09-03] MEDS: ATARAX PO PRN ×2 (08:04→17:21)
[2018-09-03] MEDS ORDERED: MAGNESIUM SULFATE 2 GM/S.W.I. 2 GM/50 ML IVPB IV ONE (09:00)
[2018-09-03] MEDS: DUONEB (A & A) INH PRN ×2 (10:40→15:01)
[2018-09-03] MEDS: OXY IR PO PRN (18:35)
--- NOTE | 2018-09-03 19:29 | PROGRESS NOTE ---
DATE: 09/03/2018 SUBJECTIVE: The patient is resting comfortably in bed. He has no complaints. OBJECTIVE: Vital Signs: Temperature 97.9, blood pressure 111/79, heart rate 64, respirations 16, O2 sats 100% on room air. General: This is a chronically ill-appearing elderly male lying in bed in no acute distress. Heart: S1, S2 normal. Regular rate and rhythm. Lungs: Clear to auscultation bilaterally. Abdomen: Positive bowel sounds. Soft, nontender, nondistended. Extremities: No edema, no cyanosis. Neurologic: The patient is alert and oriented x 3. LABS: Hemoglobin 8.6, hematocrit 26. Sodium 141, potassium 2.8, magnesium 1.5, BUN 8, creatinine 0.8. ASSESSMENT AND PLAN: 1. Status post left trochanteric femoral nail. Continue with physical therapy. 2. Constipation. Resolved. Continue with laxative therapy as needed. 3. Hypokalemia. Will replace the patient's potassium. 4. Hypomagnesemia. Will replace the patient's magnesium. 5. Hypertension. Stable. Continue on the current antihypertensive regimen. 6. Tobacco dependence. The patient has been counseled about smoking cessation. 7. Alcohol dependence. Aware. 8. DVT prophylaxis. Continue on Lovenox. 9. Disposition. Roentgenologist is working on inpatient rehab placement for the patient. cc: Ling Neri MD
[2018-09-04] MEDS: ATIVAN IV PRN ×4 (01:40→22:40)
[2018-09-04] MEDS: NORCO-7.5 PO PRN ×3 (05:55→16:02)
[2018-09-04] MEDS: LOVENOX SUBQ SCH (05:56)
[2018-09-04 06:15] LABS: HEMATOCRIT 25.7 % (42.0-52.0); HEMOGLOBIN 8.4 g/dL (14.0-18.0); MCH 31.5 PG (27-31); MCHC 32.7 g/dL (33-37); MCV 96.3 FL (81-99); MPV 10.1 FL (7.4-10.4); RBC 2.67 XMIL (4.7-6.1); RDW 15.6 % (11.5-14.5); WBC 10.67 X1000 (4.8-10.8)
[2018-09-04 06:42] LABS: AGAP 9; BUN 11 mg/dL (8-22); CALCIUM 8.3 mg/dL (8.8-10.2); CHLORIDE 99 mmol/L (98-107); COSMO 275; CREATININE 0.7 mg/dL (0.7-1.2); ESTIMATED GFR > 60; GLUCOSE 90 mg/dL (70-104); MAGNESIUM 1.6 mg/dL (1.5-2.7); POTASSIUM 3.4 mmol/L (3.5-5.1); SODIUM 138 mmol/L (136-145); TCO2 30 mmol/L (25-35)
[2018-09-04] MEDS ORDERED: KLOR-CON PO ONE (07:45)
[2018-09-04] MEDS: ATARAX PO PRN (10:14)
[2018-09-04] MEDS: NICODERM PATCH TD SCH (10:14)
[2018-09-04] MEDS: FOLIC ACID PO SCH (10:14)
[2018-09-04] MEDS: THERA M PLUS PO SCH (10:14)
[2018-09-04] MEDS: PERIDEX MT SCH ×2 (10:15→22:39)
[2018-09-04] MEDS: MAGNESIUM SULFATE 2 GM/S.W.I. 2 GM/50 ML IVPB IV ONE ×2 (10:15→13:14)
[2018-09-04] MEDS: PROZAC PO SCH (10:16)
[2018-09-04] MEDS ORDERED: G.I. COCKTAIL PO ONE (10:34)
[2018-09-04] MEDS: CATAPRES PO SCH (15:12)
[2018-09-04] MEDS: NORVASC PO SCH (15:13)
[2018-09-04] MEDS: COZAAR PO SCH (15:14)
--- NOTE | 2018-09-04 19:10 | PROGRESS NOTE ---
DATE: 09/04/2018 SUBJECTIVE: The patient is resting comfortably in bed. He complains of abdominal pain. OBJECTIVE: Vital Signs: Temperature 98.6 degrees, blood pressure 132/85, heart rate 76, respirations 18, and O2 saturation 95% on room air. General: This is an elderly male, lying in bed, in no acute distress. Heart: S1 and S2 normal. Regular rate and rhythm. Lungs: Equal air entry bilaterally. No crackles. No rales. Abdomen: Positive bowel sounds. Soft, nontender, nondistended. Extremities: No edema, no cyanosis. Neurologic: The patient is alert and oriented x3. LABORATORY DATA: Potassium 3.4, magnesium 1.6. ASSESSMENT AND PLAN: 1. Status post left trochanteric femoral nail. Continue with physical therapy. 2. Hypokalemia. We will replace the patient's potassium. 3. Hypomagnesemia. We will replace the patient's magnesium. 4. Alcohol dependence. Aware. 5. Tobacco dependence. The patient has been counseled about smoking cessation. 6. Deep vein thrombosis prophylaxis. Continue on Lovenox. 7. Disposition. Job Printer Apprentice is working on inpatient rehab placement for the patient. Continue with physical therapy. cc: Ling Neri MD
[2018-09-04] MEDS: OXY IR PO PRN (22:39)
[2018-09-04] MEDS: PROTONIX IV SCH (22:39)
[2018-09-05] MEDS: CATAPRES PO SCH ×2 (03:28→09:17)
[2018-09-05] MEDS: ATIVAN IV PRN ×4 (03:51→20:36)
[2018-09-05] MEDS: NORCO-7.5 PO PRN ×5 (03:55→20:36)
[2018-09-05] MEDS: MORPHINE IV PRN (06:09)
[2018-09-05] MEDS: LOVENOX SUBQ SCH (06:09)
[2018-09-05] MEDS: ROBAXIN PO PRN (07:00)
[2018-09-05] MEDS: DUONEB (A & A) INH PRN (08:56)
[2018-09-05] MEDS: THERA M PLUS PO SCH (09:18)
[2018-09-05] MEDS: NICODERM PATCH TD SCH (09:18)
[2018-09-05] MEDS: FOLIC ACID PO SCH (09:18)
[2018-09-05] MEDS: PERIDEX MT SCH ×2 (09:19→21:42)
[2018-09-05] MEDS: LIBRIUM PO SCH ×2 (09:22→23:30)
[2018-09-05] MEDS: NORVASC PO SCH ×2 (09:25→21:42)
[2018-09-05] MEDS: COZAAR PO SCH (09:25)
[2018-09-05] MEDS: PROZAC PO SCH (09:25)
[2018-09-05 12:46] LABS: HEMATOCRIT 28.4 % (42.0-52.0); HEMOGLOBIN 9.2 g/dL (14.0-18.0); MCH 30.9 PG (27-31); MCHC 32.4 g/dL (33-37); MCV 95.3 FL (81-99); MPV 9.3 FL (7.4-10.4); RBC 2.98 XMIL (4.7-6.1); RDW 15.5 % (11.5-14.5); WBC 10.79 X1000 (4.8-10.8)
[2018-09-05 13:01] LABS: AGAP 10; BUN 8 mg/dL (8-22); CALCIUM 8.7 mg/dL (8.8-10.2); CHLORIDE 96 mmol/L (98-107); COSMO 271; CREATININE 0.8 mg/dL (0.7-1.2); ESTIMATED GFR > 60; GLUCOSE 108 mg/dL (70-104); MAGNESIUM 1.4 mg/dL (1.5-2.7); POTASSIUM 3.2 mmol/L (3.5-5.1); SODIUM 136 mmol/L (136-145); TCO2 30 mmol/L (25-35)
[2018-09-05] MEDS ORDERED: MAGNESIUM SULFATE 2 GM/S.W.I. 2 GM/50 ML IVPB IV ONE (17:41)
[2018-09-05] MEDS ORDERED: KLOR-CON PO ONE (17:41)
--- NOTE | 2018-09-05 18:27 | PROGRESS NOTE ---
DATE: 09/05/2018 SUBJECTIVE: The patient is resting comfortably in bed. No acute events noted overnight. OBJECTIVE: Vital Signs: Temperature 97 degrees, blood pressure 174/94, heart rate 76, respirations 12, O2 saturation 97% on room air. General: This is a chronically ill-appearing elderly male lying in bed in no acute distress. Heart: S1, S2 normal. Regular rate and rhythm. Lungs: Equal air entry bilaterally. No crackles. No rales. Abdomen: Positive bowel sounds. Soft, nontender, nondistended. Extremities: No edema, no cyanosis. Neuro: The patient is alert and oriented x3. LABS: White blood cell count 10, hemoglobin 9.2, hematocrit 28, platelets 779,000. Sodium 136, potassium 3.2, chloride 96, CO2 30, BUN 8, creatinine 0.8, glucose 108, magnesium 1.4. ASSESSMENT AND PLAN: 1. Status post left trochanteric femoral nail. Continue with physical therapy. 2. Hypokalemia. Will replace the patient's potassium. 3. Hypomagnesemia. Will replace the patient's magnesium. 4. Thrombocythemia. This is likely reactive, will check a PRANEETH 2 marker. 5. Alcohol dependence. Aware. 6. Tobacco dependence. The patient has been counseled about smoking cessation. 7. Deep vein thrombosis prophylaxis. Continue on Lovenox. cc: Ling Neri MD
[2018-09-05] MEDS: ATARAX PO PRN (20:37)
[2018-09-05] MEDS: SODIUM CHLORIDE 0.9% INJ SCH (21:43)
[2018-09-05] MEDS: PROTONIX IV SCH (21:43)
[2018-09-06] MEDS: NORCO-7.5 PO PRN ×3 (01:52→21:33)
[2018-09-06] MEDS: ATIVAN IV PRN ×3 (01:53→21:33)
[2018-09-06] MEDS: NICODERM PATCH TD SCH ×2 (02:00→14:32)
[2018-09-06] MEDS: ATARAX PO PRN ×2 (04:51→18:03)
[2018-09-06] MEDS: OXY IR PO PRN (04:51)
[2018-09-06] MEDS: LOVENOX SUBQ SCH (04:52)
[2018-09-06 06:39] LABS: AGAP 10; BUN 7 mg/dL (8-22); CALCIUM 8.4 mg/dL (8.8-10.2); CHLORIDE 101 mmol/L (98-107); COSMO 279; CREATININE 0.8 mg/dL (0.7-1.2); ESTIMATED GFR > 60; GLUCOSE 93 mg/dL (70-104); MAGNESIUM 1.6 mg/dL (1.5-2.7); PHOSPHORUS 3.6 mg/dL (2.7-4.5); POTASSIUM 3.6 mmol/L (3.5-5.1); SODIUM 141 mmol/L (136-145); TCO2 30 mmol/L (25-35)
[2018-09-06] MEDS: THERA M PLUS PO SCH (08:11)
[2018-09-06] MEDS: PERIDEX MT SCH ×2 (08:11→21:33)
[2018-09-06] MEDS: COZAAR PO SCH (08:12)
[2018-09-06] MEDS: NORVASC PO SCH ×3 (08:12→21:35)
[2018-09-06] MEDS: CATAPRES PO SCH ×3 (08:12→21:35)
[2018-09-06] MEDS: FOLIC ACID PO SCH (08:12)
[2018-09-06] MEDS: PROZAC PO SCH (08:17)
[2018-09-06] MEDS ORDERED: MAGNESIUM SULFATE 4 GM/S.W.I. 4 GM/100 ML IVPB IV ONE (13:25)
--- NOTE | 2018-09-06 13:50 | PROGRESS NOTE ---
DATE: 09/06/2018 SUBJECTIVE: The patient is resting comfortably in bed. No acute events noted overnight. OBJECTIVE: Vital Signs: Temperature 98.6 degrees, blood pressure 118/76, heart rate 58, respirations 18, O2 saturation is 99% on room air. General: This is a chronically ill-appearing, elderly male lying in bed, in no acute distress. Heart: S1, S2. Normal. Lungs: Equal air entry bilaterally. No crackles. No rales. Abdomen: Positive bowel sounds. Soft, nontender, nondistended. Extremities: No edema. No cyanosis. Neurologic: The patient is alert and oriented x3. LABS: Reviewed. ASSESSMENT AND PLAN: 1. Status post left trochanteric femoral nail. Continue with physical therapy. 2. Alcohol dependence. Aware. 3. Hypertension. Controlled. 4. Deep vein thrombosis prophylaxis. Continue on Lovenox. 5. Disposition. Currently awaiting inpatient rehab placement. Continue with physical therapy in the meantime. cc: Ling Neri MD
[2018-09-06] MEDS ORDERED: NS 500 ML ONE (14:28)
[2018-09-06] MEDS: MORPHINE IV PRN ×2 (15:29→17:59)
[2018-09-06] MEDS: PROTONIX IV SCH (21:33)
[2018-09-06] MEDS: SODIUM CHLORIDE 0.9% INJ SCH (21:33)
[2018-09-07] MEDS: LOVENOX SUBQ SCH ×2 (01:30→06:05)
[2018-09-07] MEDS: OXY IR PO PRN ×2 (06:03→14:32)
[2018-09-07] MEDS: ATARAX PO PRN ×2 (06:03→14:32)
[2018-09-07 07:06] LABS: AGAP 11; BUN 6 mg/dL (8-22); CALCIUM 9.4 mg/dL (8.8-10.2); CHLORIDE 99 mmol/L (98-107); COSMO 278; CREATININE 0.9 mg/dL (0.7-1.2); ESTIMATED GFR > 60; GLUCOSE 90 mg/dL (70-104); MAGNESIUM 1.8 mg/dL (1.5-2.7); PHOSPHORUS 4.6 mg/dL (2.7-4.5); POTASSIUM 3.1 mmol/L (3.5-5.1); SODIUM 141 mmol/L (136-145); TCO2 31 mmol/L (25-35)
[2018-09-07] MEDS: PROZAC PO SCH ×2 (07:39→09:30)
[2018-09-07] MEDS: FOLIC ACID PO SCH ×2 (07:39→09:30)
[2018-09-07] MEDS: NICODERM PATCH TD SCH ×2 (07:40→09:30)
[2018-09-07] MEDS: PERIDEX MT SCH ×2 (07:40→09:30)
[2018-09-07] MEDS: COZAAR PO SCH ×2 (07:40→09:30)
[2018-09-07] MEDS: NORVASC PO SCH ×2 (07:40→09:30)
[2018-09-07] MEDS: THERA M PLUS PO SCH ×2 (07:40→09:30)
[2018-09-07] MEDS: CATAPRES PO SCH ×2 (07:40→09:29)
[2018-09-07] MEDS ORDERED: MAGNESIUM SULFATE 2 GM/S.W.I. 2 GM/50 ML IVPB IV ONE (07:52)
[2018-09-07] MEDS ORDERED: KLOR-CON PO ONE (07:52)
[2018-09-07] MEDS: NORCO-7.5 PO PRN (09:31)
--- NOTE | 2018-09-07 10:31 | DISCHARGE SUMMARY ---
ADMISSION DATE: 08/27/2018 DISCHARGE DATE: FINAL DISCHARGE DIAGNOSES: 1. Status post left trochanteric femoral nail secondary to a left intertrochanteric hip fracture. 2. Hypertension. 3. Chronic hypokalemia. 4. Alcohol abuse. 5. Tobacco dependence. 6. Constipation. CONSULTATIONS REQUESTED DURING THIS HOSPITAL STAY: Orthopedic consultation with Dr. Kwame Coles. IMAGIN. X-ray of the left hip, which revealed a left intertrochanteric fracture. 2. Abdominal x-ray which revealed constipation. PROCEDURES: Left trochanteric femoral nailing performed on 08/27/2018. HOSPITAL COURSE: Mr. Link is a 57-year-old male with a history of tobacco dependence and alcohol abuse who presented to the ER after he tripped and fell on the curb. Upon arrival to the ER, an x-ray of the hip and pelvis was done that revealed an intertrochanteric fracture of the left hip. The patient was admitted to the hospitalist service and Orthopedic Surgery was consulted. Given the patient's heavy alcohol usage, Librium was started. The patient was taken to the OR on 08/27/2018, at which time a left trochanteric femoral nailing was performed. The patient did well postoperatively. The patient requested inpatient rehab placement and Fiscal Clerk, who did put in referrals to several facilities. The patient was also seen by physical therapy here at the hospital. The patient did develop constipation and was started on scheduled laxative therapy, which resulted in improvement of his constipation. The patient continued to work with physical therapy and continued to improve clinically. The patient decided that he would rather go home with home health than go to inpatient rehab. Fiscal Clerk was consulted for assistance with home health services. The patient is currently medically stable for discharge home with home health. DISCHARGE MEDICATIONS: 1. [place] 7.5/325 one tab oral every 6 hours p.r.n. 2. Fluoxetine 20 mg p.o. daily. 3. Librium as directed. 4. Folic acid 1 mg p.o. daily. 5. Losartan 100 mg p.o. daily. 6. Multivitamin 1 tab oral daily. 7. Norvasc 5 mg p.o. twice a day. 8. Baclofen 20 mg p.o. 3 times a day. 9. Clonidine 0.2 mg p.o. twice a day. 10. Lorazepam 1 mg p.o. twice a day p.r.n. for anxiety. 11. Potassium chloride 20 mEq oral daily. DISCHARGE DIET: Low-sodium diet. ACTIVITY: As tolerated. FOLLOW-UP INSTRUCTIONS: The patient will need to follow up with Dr. Coles this week for staple removal. cc: Ling Neri MD
[2018-09-07 16:12] VITALS: BP 141/74
[2018-09-07] MEDS: DUONEB (A & A) INH PRN (16:51)
== END 2018-09-07 17:56 | disposition home health service (06) | DRG 481 ==
LOC: ED 07:13 → SUATTDRO 09:20 → 4N 09:20
PROVIDERS: ATTEND Internal Medicine
CPT/HCPCS: 36430; 70450; 72125; 73502; 73552; 74019; 74020; 76000; 80048; 80053; 80101; 80301; 80306; 80307; 80320; 80324; 80345; 80346; 80353; 80358; 80361; 80365; 81001; 81270; 82055; 82150; 82550; 82607; 82746; 83605; 83690; 83735; 83992; 84100; 84439; 84443; 84484; 85014; 85018; 85025; 85027; 85610; 85730; 86850; 86900; 86901; 86920; 87040; 93005; 94640; 94761; 94799; 96365; 96368; 96375; 96376; 97110; 97116; 97162; 97530; 99285; 99291; A9270; C9113; G0431; G0434; G0479; G0480; G6040; J0690; J1170; J1650; J1885; J2060; J2270; J2405; J3010; J3411; J3475; J3480; J7030; J7040; P9016; S0164